=== PATIENT | female | born 2000 | race Hispanic/Latino ===

== ENCOUNTER 2023-05-12 20:59 | Inpatient (IN) | payer OTHER ==
[~2023-05-12] VITALS: Ht 147.3 cm; Wt 62.2 kg
[2023-05-12] MEDS ORDERED: LAMI1TAB8 PO (21:18)
[2023-05-12] MEDS ORDERED: LEXA1TAB2 PO (21:18)
[2023-05-12] MEDS ORDERED: PROP60TA14 PO (21:18)
[2023-05-12 22:02] LABS: HEMATOCRIT 39.9 % (36.0-47.0); HEMOGLOBIN 14.1 g/dl (12.0-15.5); MEAN CORPUSCULAR HEMOGLOBIN 31.6 pg (27.0-33.0); MEAN CORPUSCULAR HGB CONC 35.3 g/dl (32.0-36.5); MEAN CORPUSCULAR VOLUME 89.5 fl (80.0-96.0); PLATELET COUNT, AUTOMATED 249 10^3/uL (150-450); RED BLOOD COUNT 4.46 10^6/uL (4.00-5.40); WHITE BLOOD COUNT 10.2 10^3/uL (4.0-10.0)
[2023-05-12 22:26] LABS: AMPHETAMINES LEVEL URINE NEGATIVE (NEGATIVE); BARBITURATES URINE NEGATIVE (NEGATIVE); BENZODIAZEPINES URINE NEGATIVE (NEGATIVE); CANNABINOIDS URINE NEGATIVE (NEGATIVE); COCAINE METABOLITE URINE NEGATIVE (NEGATIVE); METHADONE URINE NEGATIVE (NEGATIVE); OPIATES URINE NEGATIVE (NEGATIVE); PHENCYCLIDINE URINE NEGATIVE (NEGATIVE)
[2023-05-12 22:28] LABS: ETHYL ALCOHOL (ETHANOL) < 0.003 % (0.000-0.010)
[2023-05-12 22:29] LABS: SALICYLATE LEVEL < 3.0 MG/DL (<30)
[2023-05-12 22:30] LABS: ACETAMINOPHEN LEVEL < 2.0 UG/ML (10.0-20.0); ALBUMIN 3.7 G/DL (3.2-5.2); ALKALINE PHOSPHATASE 54 U/L (46-116); ALT/SGPT 16 U/L (7.0-40); AST/SGOT 11 U/L (<34); BILIRUBIN,DIRECT < 0.1 MG/DL (<0.4); BILIRUBIN,TOTAL 0.3 MG/DL (0.3-1.2); BLOOD UREA NITROGEN 6 MG/DL (9-23); CALCIUM LEVEL 9.2 MG/DL (8.5-10.1); CARBON DIOXIDE LEVEL 20 MMOL/L (20-31); CHLORIDE LEVEL 104 MMOL/L (98-107); CREATININE FOR GFR 0.41 MG/DL (0.55-1.30); GLOMERULAR FILTRATION RATE > 60.0 (>60); GLUCOSE, FASTING 89 MG/DL (60-100); POTASSIUM SERUM 3.9 MMOL/L (3.5-5.1); SODIUM LEVEL 137 MMOL/L (136-145); TOTAL PROTEIN 7.6 G/DL (5.7-8.2)
[2023-05-12 22:32] LABS: THYROID STIMULATING HORMONE 0.598 uIU/ML (0.55-4.78)
[2023-05-12 22:43] LABS: HCG, SERUM QUANTITATIVE 96963.8 MIU/ML (<4.2)
[2023-05-13] MEDS ORDERED: PANTOPRAZOLE 40MG TAB (PROTONIX) PO ONE (00:10)
[2023-05-13] MEDS ORDERED: PROP20TA72 PO (03:04)
[2023-05-13] MEDS ORDERED: LAMO300T PO (03:04)
[2023-05-13] MEDS ORDERED: LEXA1TAB2 PO (03:04)
[2023-05-13] MEDS ORDERED: MULTTAB20 PO (03:04)
[2023-05-13] MEDS ORDERED: D32000TA2 PO (03:04)
[2023-05-13] MEDS ORDERED: HOME MED LIST COMPLETE! XX SCH (03:05)
[2023-05-13] MEDS ORDERED: PROPRANOLOL 20 MG TAB PO PRN (07:00)
[2023-05-13] MEDS ORDERED: ACETAMINOPHEN TAB 650MG DOSE (2X325MG) PO PRN (16:55)
[2023-05-13] MEDS ORDERED: MOM 30ML SUSPENSION UDC PO PRN (16:55)
[2023-05-13] MEDS ORDERED: MAALOX 30 ML SUSP *UDC PO PRN (16:55)
[2023-05-13] MEDS ORDERED: ESCITALOPRAM OXALATE 10 MG TAB (LEXAPRO) PO SCH (21:00)
[2023-05-13] MEDS: diphenhydrAMINE 25MG CAP PO PRN (21:02)
[2023-05-13] MEDS ORDERED: VITAMIN D 1,000 INTERNATIONAL UNITS TABLET PO SCH (22:40)
[2023-05-13] MEDS ORDERED: PRENATAL VITAMINS CHEWABLE TABLET PO SCH (22:40)
[2023-05-13 23:33] VITALS: BP 104/63; TEMP 97.7; O2SAT 97
[2023-05-14 06:22] VITALS: BP 123/66; TEMP 97.9; O2SAT 95
[2023-05-14] MEDS: diphenhydrAMINE 25MG CAP PO PRN (09:12)
[2023-05-14] MEDS ORDERED: PROPRANOLOL 20 MG TAB PO PRN (10:10)
[2023-05-14 16:07] VITALS: BP 117/67; TEMP 98.9; O2SAT 99
[2023-05-14] MEDS: ESCITALOPRAM OXALATE 10 MG TAB (LEXAPRO) PO SCH (20:09)
[2023-05-14] MEDS: lamoTRIgine 100MG TAB PO SCH (20:09)
[2023-05-15] MEDS: diphenhydrAMINE 25MG CAP PO PRN (00:30)
[2023-05-15] MEDS: ONDANSETRON 4MG TAB PO PRN (01:21)
[2023-05-15 06:22] VITALS: BP 102/61; TEMP 98.6; O2SAT 95
[2023-05-15] MEDS: PRENATAL VITAMINS CHEWABLE TABLET PO SCH (13:26)
[2023-05-15] MEDS: VITAMIN D 1,000 INTERNATIONAL UNITS TABLET PO SCH (13:26)
[2023-05-15 16:06] VITALS: BP 120/67; TEMP 98.3; O2SAT 100
[2023-05-15] MEDS: lamoTRIgine 100MG TAB PO SCH (20:24)
[2023-05-15] MEDS: ESCITALOPRAM OXALATE 10 MG TAB (LEXAPRO) PO SCH (20:25)
[2023-05-16 06:33] VITALS: BP 114/58; TEMP 98.2; O2SAT 99
[2023-05-16] MEDS: PRENATAL VITAMINS CHEWABLE TABLET PO SCH (08:13)
[2023-05-16] MEDS: VITAMIN D 1,000 INTERNATIONAL UNITS TABLET PO SCH (08:13)
[2023-05-16] MEDS: ONDANSETRON 4MG TAB PO PRN ×2 (09:12→23:50)
[2023-05-16 16:04] VITALS: BP 122/66; TEMP 98.5; O2SAT 100
[2023-05-16] MEDS: ESCITALOPRAM OXALATE 10 MG TAB (LEXAPRO) PO SCH (21:33)
[2023-05-16] MEDS: lamoTRIgine 100MG TAB PO SCH (21:33)
[2023-05-17 06:05] VITALS: BP 115/55; TEMP 97.6; O2SAT 100
[2023-05-17] MEDS: PRENATAL VITAMINS CHEWABLE TABLET PO SCH (09:20)
[2023-05-17] MEDS: VITAMIN D 1,000 INTERNATIONAL UNITS TABLET PO SCH (09:20)
== END 2023-05-17 10:06 | disposition home or self-care (01) | DRG 832 ==
LOC: M ED 20:59 → M ED INP 05-13 16:55 → M PSY 05-13 23:32
PROVIDERS: ADMIT Student in an Organized Health Care Education/Training Program; ATTEND Student in an Organized Health Care Education/Training Program
DX: O99.341 Other mental disorders complicating pregnancy, first trimester (principal); F31.30 Bipolar disorder, current episode depressed, mild or moderate severity, unspecified; R45.851 Suicidal ideations; Z63.0 Problems in relationship with spouse or partner; Z79.899 Other long term (current) drug therapy; Z91.011 Allergy to milk products; Z91.410 Personal history of adult physical and sexual abuse; F41.9 Anxiety disorder, unspecified; Z3A.11 11 weeks gestation of pregnancy

== ENCOUNTER → 2023-07-15 | Outpatient (CLI) | payer OTHER ==
[~2023-07-15] MED LIST: D32000TA2 PO; LAMI1TAB8 PO; LAMO300T PO; LEXA1TAB2 PO; MULTTAB20 PO; PROP20TA72 PO; PROP60TA14 PO
== END ==
LOC: M WHC 13:55
PROVIDERS: ATTEND Specialist
DX: Z34.02 Encounter for supervision of normal first pregnancy, second trimester (principal); Z3A.20 20 weeks gestation of pregnancy